=== PATIENT | female | born 1975 | race Caucasian/White ===

== ENCOUNTER 2019-09-26 05:13 | Inpatient (IN) | payer OTHER ==
[~2019-09-26] VITALS: Ht 165.1 cm; Wt 65.9 kg
--- NOTE | 2019-09-26 05:45 | NUR ---
DURING INTERVIEW WITH PROVIDER: PATIENT STATED THAT SHE HAS NOT BEEN ABLE TO KEEP ANYTHING DOWN ORALLY SINCE BEING DISCHARGED FROM THE HOSPITAL ON SUNDAY. PATIENT THEN ADMITTED TO EATING [employer] SOUP AND CRACKERS ON MULTIPLE OCCASIONS AT HOME. ASKED PATIENT IF SHE WAS CURRENTLY NAUSEATED. PATIENT STATED THAT SHE WAS, ADMITTED TO VOMITING PRIOR TO ARRIVAL. PATIENT PLACED ON A MONITOR FOR OBSERVATION. IV PLACED, LABS DRAWN. PATIENT TOLERATED POORLY. WILL CONTINUE TO MONITOR.
[2019-09-26] MEDS ORDERED: PROMETHAZINE 25 MG/ML, 1ML IM ONE (06:00)
[2019-09-26] MEDS ORDERED: SODIUM CHLORIDE 0.9% 1,000ML IVBOLUS ONE (06:00)
[2019-09-26] MEDS ORDERED: ONDANSETRON 2MG/ML, 2ML IVPush ONE (06:00)
[2019-09-26] MEDS ORDERED: ONDANSETRON 2MG/ML, 2ML ONE (06:02)
[2019-09-26] MEDS ORDERED: PROMETHAZINE 25 MG/ML, 1ML ONE (06:03)
[2019-09-26 06:13] LABS: BASOPHILS # (AUTO) 0.18 x10^3/uL (0-0.1); BASOPHILS % (AUTO) 1 % (0-1); EOSINOPHILS # (AUTO) 0.05 x10^3/uL (0-0.4); EOSINOPHILS % (AUTO) 0 % (1-7); LYMPHOCYTES # (AUTO) 2.64 x10^3/uL (1-3.4); LYMPHOCYTES % (AUTO) 19 % (22-44); MD NO; MEAN CORPUSCULAR HEMOGLOBIN 30.5 pg (27.0-34.8); MEAN CORPUSCULAR HGB CONC 32.3 g/dL (32.4-35.8); MEAN PLATELET VOLUME 8.8 fL (7.4-10.4); MONOCYTES # (AUTO) 0.49 x10^3/uL (0.2-0.8); MONOCYTES % (AUTO) 3 % (2-9); NEUTROPHILS # (AUTO) 10.89 x10^3/uL (1.8-6.8); NEUTROPHILS % (AUTO) 77 % (42-75); PLATELET COUNT 377 x10^3/uL (130-400); RED BLOOD COUNT 4.27 x10^6/uL (3.82-5.3); RED CELL DISTRIBUTION WIDTH 13.6 % (9.6-15.2)
--- NOTE | 2019-09-26 06:16 | NUR ---
PATIENT REQUESTED IV BE RE-STARTED. PATIENT GIVEN EDUCATION REGARDING MEDICATIONS AND FLUIDS. PATIENT VERBALIZED UNDERSTANDING, AGREED TO KEEP CURRENT IV. MEDICATIONS GIVEN. ATTEMPTED TO GET FROM LOBBY. PATIENT'S NOT IN LOBBY. UPDATED PATIENT ON PLAN OF CARE. VITAL SIGNS STABLE. WILL CONTINUE TO MONITOR.
[2019-09-26 06:23] LABS: ALANINE AMINOTRANSFERASE 19 U/L (12-78); ANION GAP 9 mmol/L (5-15); CALCIUM 9.7 mg/dL (8.5-10.1); CHLORIDE 114 mmol/L (98-107)
[2019-09-26 06:25] LABS: ALKALINE PHOSPHATASE 81 U/L (45-117); BILIRUBIN,TOTAL 0.3 mg/dL (0.2-1.0); TOTAL PROTEIN 8.2 g/dL (6.4-8.2)
--- NOTE | 2019-09-26 07:02 | NUR ---
report from ely
--- NOTE | 2019-09-26 08:17 | NUR ---
PT AMBULATED TO BATHROOM W STEADY GAIT. [facility]A SENT
[2019-09-26 08:27] LABS: MICROSCOPIC INDICATED
--- NOTE | 2019-09-26 10:26 | NUR ---
THROUGHPUT RN: CALLED [facility] D/T PT HAVING A NON-CONTRACTED INSURANCE AND SPOKE WITH JESSEE. PT DENIED TRANSFER AT THIS TIME.
--- NOTE | 2019-09-26 11:11 | NUR ---
UNABLE TO TOLERATE PO LIQUIDS
--- NOTE | 2019-09-26 11:25 | NUR ---
PT REQUESTING SPRITE, STILL FEELING NAUSEAS AND HAS JEFFREY
[2019-09-26] MEDS ORDERED: DIPHENHYDRAMINE 50 MG/ML, 1ML ONE (11:33)
[2019-09-26] MEDS ORDERED: METOCLOPRAMIDE 5 MG/ML, 2ML ONE (11:33)
--- NOTE | 2019-09-26 11:40 | NUR ---
MEDICATED PER ORDERS. REQUESTED HOSPITAL BED FOR COMFORT
[2019-09-26] MEDS ORDERED: METOCLOPRAMIDE 5 MG/ML, 2ML IVPush ONE (12:00)
[2019-09-26] MEDS ORDERED: DIPHENHYDRAMINE 50 MG/ML, 1ML IVPush ONE (12:00)
--- NOTE | 2019-09-26 12:15 | NUR ---
STOOL SAMPLE SENT
--- NOTE | 2019-09-26 12:57 | NUR ---
GLORIA AT BEDSIDE. REPORT CALLED TO SANDEE
[2019-09-26 13:03] VITALS: BP 122/84
[2019-09-26 13:05] LABS: CLOSTRIDIUM DIFFICILE ANTIGEN NEGATIVE; CLOSTRIDIUM DIFFICILE TOXIN NEGATIVE (Negative)
[2019-09-26] MEDS ORDERED: PROMETHAZINE 25 MG/ML, 1ML IM PRN (13:30)
[2019-09-26] MEDS ORDERED: ACETAMINOPHEN 325 MG TABLET PO PRN (13:30)
[2019-09-26] MEDS ORDERED: METOCLOPRAMIDE 5 MG/ML, 2ML IVPush PRN (13:30)
[2019-09-26] MEDS ORDERED: ONDANSETRON ODT 4 MG PO PRN (13:30)
[2019-09-26] MEDS ORDERED: hydrALAzine 20 MG/ML, 1ML IVPush PRN (13:30)
[2019-09-26] MEDS ORDERED: MULT-658 PO (13:31)
[2019-09-26] MEDS ORDERED: METF500T17 PO (13:31)
[2019-09-26] MEDS ORDERED: CLON0.2T PO (13:31)
[2019-09-26] MEDS ORDERED: ALPR1TAB2 PO (13:31)
[2019-09-26] MEDS ORDERED: ZOLP10TA PO (13:31)
[2019-09-26] MEDS ORDERED: OMEP-110 PO (13:31)
[2019-09-26] MEDS ORDERED: GABA600T7 PO ×2 (13:31)
[2019-09-26] MEDS ORDERED: ONDA8TAB18 PO (13:31)
[2019-09-26] MEDS ORDERED: MONT10TA11 PO (13:31)
[2019-09-26] MEDS ORDERED: NEBI5TAB2 PO (13:31)
[2019-09-26] MEDS ORDERED: BUPR100T11 PO (13:31)
[2019-09-26] MEDS ORDERED: BUDE0.5A INH (13:31)
[2019-09-26] MEDS ORDERED: TOPI50TA8 PO (13:31)
[2019-09-26] MEDS ORDERED: HYDR-3241 PO (13:31)
[2019-09-26] MEDS: POTASSIUM CHLORIDE 20 MEQ in LACTATED RINGERS 1,000 ML IV SCH (14:30)
[2019-09-26] MEDS: ENOXAPARIN 40 MG/0.4 ML SQ SCH (14:31)
[2019-09-26 14:38] LABS: OCCULT BLOOD NEGATIVE (NEGATIVE)
[2019-09-26 15:59] VITALS: BP 116/79
[2019-09-26 17:18] LABS: CRYPTOSPORIDIUM ANTIGEN Negative (Negative)
[2019-09-26] MEDS ORDERED: ZOLPIDEM 10MG TABLET PO PRN (18:00)
[2019-09-26 19:54] VITALS: BP 131/86
[2019-09-26] MEDS ORDERED: CIPROFLOXACIN 500 MG TABLET ONE (21:12)
[2019-09-26] MEDS: ALPRazolam 1MG TAB PO SCH (21:18)
[2019-09-26] MEDS: CIPROFLOXACIN 250 MG TABLET PO SCH (21:18)
[2019-09-26] MEDS: GABAPENTIN 300 MG CAPSULE PO SCH (21:18)
[2019-09-26] MEDS: MONTELUKAST 10 MG TABLET PO SCH (21:19)
[2019-09-26] MEDS: BUDESONIDE 0.5 MG/2 ML INHA INH SCH (21:22)
[2019-09-27] MEDS: POTASSIUM CHLORIDE 20 MEQ in LACTATED RINGERS 1,000 ML IV SCH ×2 (00:46→09:51)
[2019-09-27 02:28] VITALS: BP 110/74
[2019-09-27 05:49] LABS: BASOPHILS # (AUTO) 0.06 x10^3/uL (0-0.1); BASOPHILS % (AUTO) 1 % (0-1); EOSINOPHILS # (AUTO) 0.12 x10^3/uL (0-0.4); EOSINOPHILS % (AUTO) 1 % (1-7); LYMPHOCYTES % (AUTO) 32 % (22-44); MD NO; MEAN CORPUSCULAR HEMOGLOBIN 31.3 pg (27.0-34.8); MEAN CORPUSCULAR HGB CONC 33.4 g/dL (32.4-35.8); MEAN PLATELET VOLUME 8.8 fL (7.4-10.4); MONOCYTES # (AUTO) 0.76 x10^3/uL (0.2-0.8); MONOCYTES % (AUTO) 7 % (2-9); NEUTROPHILS # (AUTO) 6.39 x10^3/uL (1.8-6.8); NEUTROPHILS % (AUTO) 60 % (42-75); PLATELET COUNT 281 x10^3/uL (130-400); RED BLOOD COUNT 3.42 x10^6/uL (3.82-5.3); RED CELL DISTRIBUTION WIDTH 13.7 % (9.6-15.2)
[2019-09-27 05:55] LABS: ALBUMIN 2.9 g/dL (3.4-5.0); ANION GAP 6 mmol/L (5-15); CHLORIDE 117 mmol/L (98-107)
[2019-09-27 06:06] LABS: ALANINE AMINOTRANSFERASE 13 U/L (12-78); ALKALINE PHOSPHATASE 61 U/L (45-117); BILIRUBIN,TOTAL 0.1 mg/dL (0.2-1.0); CALCIUM 8.8 mg/dL (8.5-10.1); CHOL/HDL RATIO 6.9; CHOLESTEROL, TOTAL 180 mg/dL (140-239); HDL CHOL % 14 % (28-40); HDL CHOLESTEROL (DIRECT) 26 mg/dL (40-60); LDL CHOLESTEROL,CALCULATED 108 mg/dL (54-169); LDL/HDL RATIO 4.2 (0.5-3.0); TRIGLYCERIDES 232 mg/dL (50-200); VLDL CHOLESTEROL 46 mg/dL (0-25)
[2019-09-27] MEDS: PANTOPRAZOLE 40 MG IV IVPush SCH (07:51)
[2019-09-27] MEDS: MULTIVITAMIN 1 TABLET PO SCH (07:52)
[2019-09-27] MEDS: CIPROFLOXACIN 250 MG TABLET PO SCH ×2 (07:52→20:55)
[2019-09-27] MEDS: GABAPENTIN 300 MG CAPSULE PO SCH ×3 (07:52→20:54)
[2019-09-27] MEDS: BUPROPION 100 MG TABLET PO SCH (07:53)
[2019-09-27] MEDS: TOPIRAMATE 25 MG TABLET PO SCH (07:53)
[2019-09-27] MEDS: NEBIVOLOL HCL 5 MG TABLET PO SCH (07:53)
[2019-09-27] MEDS: BUDESONIDE 0.5 MG/2 ML INHA INH SCH ×2 (07:54→20:56)
[2019-09-27 08:11] VITALS: BP 118/82
[2019-09-27] MEDS ORDERED: PSEUDOEPHEDRINE 30 MG TABLET ONE (09:46)
[2019-09-27] MEDS ORDERED: PSEUDOEPHEDRINE 30 MG TABLET PO PRN ×2 (10:00→11:00)
[2019-09-27] MEDS ORDERED: SODIUM PHOSPHATE 10 MMOL in SODIUM CHLORIDE 0.9% 500 ML IV ONE (11:00)
[2019-09-27 13:15] VITALS: BP 128/87
[2019-09-27] MEDS: ENOXAPARIN 40 MG/0.4 ML SQ SCH (14:33)
[2019-09-27 18:14] VITALS: BP 138/94
[2019-09-27] MEDS ORDERED: POTASSIUM CHLORIDE 20 MEQ in LACTATED RINGERS 1,000 ML IV SCH (19:30)
[2019-09-27] MEDS ORDERED: CIPROFLOXACIN 500 MG TABLET ONE (20:51)
[2019-09-27] MEDS: MONTELUKAST 10 MG TABLET PO SCH (20:54)
[2019-09-27] MEDS: ALPRazolam 1MG TAB PO SCH (20:54)
[2019-09-28 00:45] VITALS: BP 136/77
[2019-09-28 04:50] LABS: BASOPHILS # (AUTO) 0.05 x10^3/uL (0-0.1); BASOPHILS % (AUTO) 1 % (0-1); EOSINOPHILS # (AUTO) 0.16 x10^3/uL (0-0.4); EOSINOPHILS % (AUTO) 2 % (1-7); LYMPHOCYTES # (AUTO) 4.02 x10^3/uL (1-3.4); LYMPHOCYTES % (AUTO) 37 % (22-44); MD NO; MEAN CORPUSCULAR HEMOGLOBIN 31.2 pg (27.0-34.8); MEAN CORPUSCULAR HGB CONC 33.3 g/dL (32.4-35.8); MEAN PLATELET VOLUME 8.5 fL (7.4-10.4); MONOCYTES # (AUTO) 0.76 x10^3/uL (0.2-0.8); MONOCYTES % (AUTO) 7 % (2-9); NEUTROPHILS # (AUTO) 5.95 x10^3/uL (1.8-6.8); NEUTROPHILS % (AUTO) 54 % (42-75); PLATELET COUNT 311 x10^3/uL (130-400); RED CELL DISTRIBUTION WIDTH 13.6 % (9.6-15.2)
[2019-09-28 04:55] LABS: ANION GAP 6 mmol/L (5-15); CALCIUM 8.5 mg/dL (8.5-10.1); CHLORIDE 117 mmol/L (98-107)
[2019-09-28 04:57] LABS: CREATININE 0.93 mg/dL (0.55-1.02)
[2019-09-28] MEDS: MULTIVITAMIN 1 TABLET PO SCH (08:23)
[2019-09-28] MEDS: BUPROPION 100 MG TABLET PO SCH (08:23)
[2019-09-28] MEDS: PANTOPRAZOLE 40 MG IV IVPush SCH (08:23)
[2019-09-28] MEDS: GABAPENTIN 300 MG CAPSULE PO SCH ×2 (08:24→12:48)
[2019-09-28] MEDS: TOPIRAMATE 25 MG TABLET PO SCH (08:24)
[2019-09-28] MEDS: CIPROFLOXACIN 250 MG TABLET PO SCH (08:24)
[2019-09-28] MEDS: NEBIVOLOL HCL 5 MG TABLET PO SCH (08:25)
[2019-09-28 08:48] VITALS: BP 106/74
[2019-09-28] MEDS: BUDESONIDE 0.5 MG/2 ML INHA INH SCH (09:00)
[2019-09-28] MEDS: ENOXAPARIN 40 MG/0.4 ML SQ SCH (12:49)
[2019-09-28 13:18] VITALS: BP 128/76
[2019-09-28] MEDS ORDERED: CIPR250T27 PO (13:47)
[2019-09-29] MEDS ORDERED: PANTOPRAZOLE 40MG TABLET PO SCH (06:00)
== END 2019-09-28 16:16 | disposition home or self-care (01) | DRG 372 ==
LOC: ED 06:17 → EDIP 10:24 → 4EST 12:54
PROVIDERS: ADMIT Family Medicine; ATTEND Hospitalist
DX: A04.9 Bacterial intestinal infection, unspecified (principal); E87.2 Acidosis; E86.0 Dehydration; D72.829 Elevated white blood cell count, unspecified; E83.39 Other disorders of phosphorus metabolism; F32.9 Major depressive disorder, single episode, unspecified; G89.29 Other chronic pain; I10 Essential (primary) hypertension; J45.909 Unspecified asthma, uncomplicated; K21.9 Gastro-esophageal reflux disease without esophagitis; M54.9 Dorsalgia, unspecified; R12 Heartburn; Z79.899 Other long term (current) drug therapy; Z80.0 Family history of malignant neoplasm of digestive organs; Z80.7 Family history of other malignant neoplasms of lymphoid, hematopoietic and related tissues; Z86.73 Personal history of transient ischemic attack (TIA), and cerebral infarction without residual deficits; Z87.891 Personal history of nicotine dependence; Z90.89 Acquired absence of other organs; Z88.0 Allergy status to penicillin; E86.9 Volume depletion, unspecified; Z79.84 Long term (current) use of oral hypoglycemic drugs; Z79.52 Long term (current) use of systemic steroids
CPT/HCPCS: 36415; 80048; 80053; 80061; 81001; 82272; 83690; 83735; 84100; 84443; 84703; 85025; 87046; 87086; 87324; 87328; 87329; 89055; 96361; 96372; 96374; 96375; 99285; G0378; J1650; J2405; J2550; J3480; C9113; J1200; J2765; J7030; J7040; J7120